=== PATIENT | female | born 1965 | race Caucasian/White ===

== ENCOUNTER 2017-09-13 06:00 | Day surgery (SDC) | payer OTHER ==
[~2017-09-13] VITALS: Ht 154.9 cm; Wt 88.6 kg
[~2017-09-13 06:00] MED LIST: GABA-531 PO; PANT40TA25 PO; SODIUM CHLORIDE 0.9% 1,000 ML IV ONE
[2017-09-13] MEDS ORDERED: EPINEPHrine 1:1,000 [1 MG/ML] AMP IM ONE (06:01)
[2017-09-13] MEDS ORDERED: LIDOCAINE HCL 2% 5 ML JELLY TP ONE (06:01)
[2017-09-13] MEDS ORDERED: BENZOCAINE 20% 50 MCG/SPRAY 57 GM TP ONE (06:01)
[2017-09-13] MEDS ORDERED: LIDOCAINE HCL 4% 50 ML SOLUTION TP ONE (06:01)
[2017-09-13] MEDS ORDERED: LORA10TA7 PO (06:41)
[2017-09-13] MEDS ORDERED: LIDO1ADH48 TP (06:41)
[2017-09-13] MEDS ORDERED: OMEP20 PO (06:41)
[2017-09-13] MEDS ORDERED: MELO-107 PO (06:41)
[2017-09-13] MEDS ORDERED: ZOLP5 PO (06:41)
[2017-09-13] MEDS ORDERED: GUAI-899 PO (06:41)
[2017-09-13] MEDS ORDERED: AUD NEB (06:41)
[2017-09-13] MEDS ORDERED: KETO5DRO6 OP (06:41)
[2017-09-13] MEDS ORDERED: HYDR25TA PO (06:41)
[2017-09-13] MEDS ORDERED: OXYB5 PO (06:41)
[2017-09-13] MEDS ORDERED: CITA20TA9 PO (06:41)
[2017-09-13] MEDS ORDERED: NITR50 PO (06:41)
[2017-09-13] MEDS ORDERED: GABA-531 PO (06:42)
[2017-09-13] MEDS ORDERED: LIDO15CR11 TP (06:42)
[2017-09-13] MEDS ORDERED: FLUT16H NASAL (06:42)
[2017-09-13] MEDS ORDERED: ALBU8HFA IH (06:42)
[2017-09-13] MEDS ORDERED: ACET650S14 PR (06:42)
[2017-09-13] MEDS ORDERED: MIDAZOLAM HCL 2 MG/2 ML VIAL ONE (07:45)
[2017-09-13] MEDS ORDERED: FentaNYL CITRATE-PF 100 MCG/2 ML VIAL ONE (07:46)
[2017-09-13] MEDS ORDERED: MethylPREDNISolone SOD SUCC 125 MG/2 ML VIAL IVP ONE (08:30)
[2017-09-13] MEDS ORDERED: MethylPREDNISolone SOD SUCC 125 MG/2 ML VIAL ONE (09:01)
[2017-09-13] MEDS ORDERED: OXYGEN THERAPY IH SCH (20:00)
== END 2017-09-13 09:50 | disposition home or self-care (01) ==
LOC: SURGERY 06:00
PROVIDERS: ATTEND Internal Medicine Critical Care Medicine
DX: J38.4 Edema of larynx (principal); B37.0 Candidal stomatitis; J44.9 Chronic obstructive pulmonary disease, unspecified; K21.9 Gastro-esophageal reflux disease without esophagitis; M19.90 Unspecified osteoarthritis, unspecified site; Z90.710 Acquired absence of both cervix and uterus; Z98.890 Other specified postprocedural states; Z79.899 Other long term (current) drug therapy
CPT/HCPCS: 31623; 31624; 71045; 87015; 87070; 87147; 87205; 87220; 88108; 88312; J0171; J2250; J2930; J3010; J7030

== ENCOUNTER 2025-03-08 01:40 | Emergency (ER) | payer OTHER ==
[~2025-03-08] VITALS: Ht 157.5 cm; Wt 91.0 kg
[~2025-03-08 01:40] MED LIST changes: +ACET650S14 PR; +ALBU18HF12 IH; +ALBU2.5V39 NEB; +CITA-144 PO; +FLUT16SP NASAL; +GABA-1181 PO; -GABA-531 PO; +GUAI-899 PO; +HYDR25TA2 PO; +KETO-99 OP; +LIDO15CR15 TP; +LIDO1ADH48 TP; +LORA10TA7 PO; +MELO-107 PO; +NITR50CA PO; +OMEP-148 PO; +OXYB5TAB20 PO; +PANT-31 PO; -PANT40TA25 PO; -SODIUM CHLORIDE 0.9% 1,000 ML IV ONE; +ZOLP-280 PO
[2025-03-08] MEDS: ONDANSETRON HCL 4 MG/2 ML VIAL IVP ONE (02:00)
[2025-03-08 02:16] LABS: PLATELET COUNT (AUTO) 277 K/uL (150-450); RED BLOOD CELL COUNT(AUTO) 5.05 MIL/uL (4.00-5.20); RED CELL DISTRIBUTION WIDTH 13.4 % (11.5-14.5); WHITE BLOOD COUNT (AUTO) 14.5 K/uL (4.5-11.0)
[2025-03-08 02:27] LABS: CALCIUM, TOTAL 9.1 mg/dL (8.8-10.5); CREATININE 0.89 mg/dL (0.60-1.30); GLOMERULAR FILTR. RATE CALC > 60 mL/min (>60); GLUCOSE,RANDOM 133 mg/dL (70-110); SODIUM SERUM 142 mmol/L (136-145); UREA NITROGEN, BLOOD 17 mg/dL (7-18)
[2025-03-08 02:33] LABS: ASPARTATE AMINOTRANSFERASE 36.0 U/L (15-37); TOTAL PROTEIN, SERUM 7.8 g/dL (6.4-8.2)
[2025-03-08 02:39] LABS: TROPONIN I-HIGH SENSITIVITY 72 ng/L (<51)
[2025-03-08] MEDS: FAMOTIDINE 20 MG/2 ML VIAL IVP ONE (03:30)
[2025-03-08 04:08] LABS: APPEARANCE,URINE CLEAR (CLEAR); GLUCOSE, URINE (UA) NEGATIVE (NEGATIVE); LEUKOCYTE ESTERASE ,URINE NEGATIVE (NEGATIVE); NITRATE,URINE NEGATIVE (NEGATIVE); OCCULT BLOOD,URINE NEGATIVE (NEGATIVE); SPECIFIC GRAVITIY, URINE 1.016 (1.003-1.030)
[2025-03-08 04:47] LABS: TROPONIN I-HIGH SENSITIVITY 55 ng/L (<51)
[2025-03-08] MEDS ORDERED: ONDA-104 PO (05:18)
[2025-03-08 05:55] VITALS: BP 132/89; PULSE 89; RESP 18; TEMP 97.3; O2SAT 98
== END 2025-03-08 06:12 | disposition home or self-care (01) ==
LOC: EMS 03:22
DX: K21.9 Gastro-esophageal reflux disease without esophagitis (principal); R11.2 Nausea with vomiting, unspecified; J45.909 Unspecified asthma, uncomplicated; Z79.899 Other long term (current) drug therapy; Z98.890 Other specified postprocedural states; Z79.1 Long term (current) use of non-steroidal anti-inflammatories (NSAID)
CPT/HCPCS: 99284; 96374; 96375; 80048; 80076; 81003; 83690; 84484; 85025; 36415; 93005; J3490; J2405